=== PATIENT | male | born 1960 | race Caucasian/White ===

== ENCOUNTER 2017-03-27 10:40 | Emergency (ER) | payer BC ==
[~2017-03-27] VITALS: Ht 177.8 cm; Wt 104.3 kg
[~2017-03-27 10:40] MED LIST: COLACE50 MG PO; CYANOCOBAL1000 MCG/M IM; CYMBALTA30 MG PO; FAMOTIDINE20 MG PO; LYRICA150 MG PO; MORPHINE SULFAT30 M1 PO; MORPHINE SULFAT60 M2 PO; MORPHINE SULFAT60 M3 PO; OXYCODONE HCL5 MG PO; TROSPIUM CHLORI60 MG PO
[2017-03-27] MEDS ORDERED: GABAPENTIN300 MG PO (11:03)
[2017-03-27] MEDS ORDERED: LASIX20 MG PO (11:04)
== END 2017-03-27 13:05 | disposition home or self-care (01) ==
LOC: ED 10:40
DX: M25.551 Pain in right hip (principal); F17.200 Nicotine dependence, unspecified, uncomplicated; Z88.8 Allergy status to other drugs, medicaments and biological substances; Z79.899 Other long term (current) drug therapy
CPT/HCPCS: 72170; 73502; 96372; 99283; J2270